=== PATIENT | male | born 1955 | race Caucasian/White ===

== ENCOUNTER → 2018-05-22 | Outpatient (CLI) | payer MEDICARE ==
[~2018-05-22] MED LIST: IBUPROFEN800 MG PO; LIPITOR20 MG PO; NO HOME MEDICATIONS; NORCO 325 MG-7.1 TAB PO; TESTOSTERONE25 MG/ML IM
== END ==
LOC: MC.RAD 13:32
DX: N62 Hypertrophy of breast (principal)

== ENCOUNTER → 2019-08-14 | Outpatient (CLI) | payer MEDICARE | LOC: MHCPAIN 13:19 | DX: G89.29 Other chronic pain (principal); M47.817 Spondylosis without myelopathy or radiculopathy, lumbosacral region; M54.16 Radiculopathy, lumbar region; M53.3 Sacrococcygeal disorders, not elsewhere classified | CPT/HCPCS: G0463 ==

== ENCOUNTER → 2019-08-19 | Outpatient (CLI) | payer MEDICARE | LOC: MHCPAIN 15:10 | DX: M47.817 Spondylosis without myelopathy or radiculopathy, lumbosacral region (principal); M54.16 Radiculopathy, lumbar region | CPT/HCPCS: J1100; Q9967 ==

== ENCOUNTER → 2019-08-28 | Outpatient (CLI) | payer MEDICARE | LOC: MHCPAIN 12:40 | DX: G89.29 Other chronic pain (principal); M47.817 Spondylosis without myelopathy or radiculopathy, lumbosacral region; M54.16 Radiculopathy, lumbar region; M53.3 Sacrococcygeal disorders, not elsewhere classified | CPT/HCPCS: G0463 ==